=== PATIENT | female | born 1980 | race Caucasian/White ===

== ENCOUNTER → 2016-09-09 | Outpatient (REF) ==
[~2016-09-09] MED LIST: CEPHALEXIN500 M1 PO; FLOMAX 0.40.4 MG/CAP PO; LEXAPRO10 MG PO; LEXAPRO20 MG PO; NO HOME MEDICATIONS; NORCO 325 MG-7.1 TAB PO; PERCOCET 325 MG1 TA2 PO; ZOFRAN ODT4 MG PO
== END ==
LOC: WSOH 13:24
DX: Z02.89 Encounter for other administrative examinations (principal)

== ENCOUNTER → 2020-07-03 | Emergency (ER) | payer OTHER ==
[~2020-07-03] VITALS: Ht 154.9 cm; Wt 64.1 kg
[~2020-07-03] MED LIST changes: +ALEVE 220MG220 MG PO; +NORCO 325 MG-51 TAB PO
[2020-07-03 09:55] VITALS: BP 116/84; TEMP 98.3
[2020-07-03 11:14] VITALS: PULSE 66
== END ==
LOC: COL.ER 09:41
DX: M54.31 Sciatica, right side (principal); Z88.6 Allergy status to analgesic agent

== ENCOUNTER 2020-10-19 08:23 | Day surgery (SDC) | payer MEDICAID ==
[~2020-10-19] VITALS: Ht 154.9 cm; Wt 61.6 kg
[2020-10-19 08:33] VITALS: PULSE 80; TEMP 97.7
[2020-10-19] MEDS ORDERED: LEXAPRO 10MG10 MG PO (08:48)
[2020-10-19 09:55] VITALS: BP 112/94; PULSE 83; TEMP 98.4
--- NOTE | 2020-10-19 09:55 | NUR ---
Pt to [facility] via cart from ENDO. Pt drowsy, but awake. Pt ambulates to recliner with stand by assist. Warm blanket provided. Pt denies need for po food or fluids. Will continue to monitor. Call light within reach.
[2020-10-19 10:10] VITALS: BP 111/92; PULSE 79
--- NOTE | 2020-10-19 10:10 | NUR ---
Pt continues to rest. Denies pain or nausea. Will continue to monitor. Call light within reach.
[2020-10-19 10:25] VITALS: BP 114/84; PULSE 75
--- NOTE | 2020-10-19 10:25 | NUR ---
Pt continues to rest. Denies needs. Call light within reach.
--- NOTE | 2020-10-19 10:30 | NUR ---
IV site discontinued with all parts intact. Discharge instructions reviewed. Pt voices understanding. Pt up to dress. Call light within reach.
--- NOTE | 2020-10-19 10:45 | NUR ---
Pt escorted to private car via wheel chair. Pt accompanied home by her friend Nikhil.
== END 2020-10-19 10:45 | disposition home or self-care (01) ==
LOC: SDCO 08:23
DX: Z12.11 Encounter for screening for malignant neoplasm of colon (principal); Z80.0 Family history of malignant neoplasm of digestive organs; F32.9 Major depressive disorder, single episode, unspecified; F17.210 Nicotine dependence, cigarettes, uncomplicated; Z20.822 Contact with and (suspected) exposure to COVID-19; Z88.5 Allergy status to narcotic agent; Z79.899 Other long term (current) drug therapy
CPT/HCPCS: J2704; J7120